=== PATIENT | male | born 1955 | race Caucasian/White ===

== ENCOUNTER 2018-11-14 13:20 | Emergency (ER) | payer OTHER ==
--- NOTE | 2018-11-14 14:07 | EDM.PDOC ---
ED HPI GENERAL MEDICAL PROBLEM - General Chief Complaint: Lower Extremity Injury/Pain Stated Complaint: ACCIDENT/ VIA [facility] Time Seen by Provider: 11/14/18 14:01 Source of Information: Reports: Patient, Family, RN Notes Reviewed History Limitations: Reports: No Limitations - History of Present Illness INITIAL COMMENTS - FREE TEXT/NARRATIVE: 63-year-old gentleman brought in by EMS services today with complaint of pain to his left lower extremity. He injured himself while cutting wood large branch swung down and hit him along side the left leg he does have a large hematoma in that leg rates his pain 5 out of 10 declines any pain medication at this time. No difficulty moving his lower extremity although painful to bear weight Left Lower Leg Pain Score (Numeric/FACES): 5 - Related Data Allergies Allergy/AdvReac Type Severity Reaction Status Date / Time atorvastatin Allergy Cannot Verified 11/14/18 13:32 Remember carbamazepine Allergy Cannot Verified 11/14/18 13:32 Remember cephalexin [From Keflex] Allergy Cannot Verified 11/14/18 13:32 Remember coconut Allergy Cannot Verified 11/14/18 13:32 Remember etodolac Allergy Cannot Verified 11/14/18 13:32 Remember influenza A (H1N1) virus Allergy Cannot Verified 11/14/18 13:32 vaccine [id number] Remember [From influenza A (H1N1)] morphine Allergy Cannot Verified 11/14/18 13:32 Remember naproxen Allergy Cannot Verified 11/14/18 13:32 Remember Penicillins Allergy Cannot Verified 11/14/18 13:32 Remember simvastatin Allergy Cannot Verified 11/14/18 13:32 Remember Home Meds: Home Meds Albuterol Sulfate [Albuterol Sulfate Hfa] 1 inh IH Q4H PRN 11/14/18 [History] Aspirin [Halfprin] 81 mg PO DAILY 11/14/18 [History] Budesonide/Formoterol [Symbicort 160-4.5 MCG] 1 puff INH BID 11/14/18 [History] Cholecalciferol (Vitamin D3) [Vitamin D3] 1,000 unit PO DAILY 11/14/18 [History] Fexofenadine HCl 180 mg PO DAILY 11/14/18 [History] Fluticasone Propionate [Flonase] 1 spray NS DAILY 11/14/18 [History] Furosemide 40 mg PO DAILY 11/14/18 [History] Gabapentin [Neurontin] 600 mg PO TID 11/14/18 [History] Levothyroxine 112 mcg PO ACBREAKFAST 11/14/18 [History] Metoprolol Succinate 12.5 mg PO DAILY 11/14/18 [History] Sennosides/Docusate Sodium [Docusate Sodium-Sennosides Tab] 1 each PO DAILY [History] Past Medical History HEENT History: Reports: Impaired Vision Cardiovascular History: Reports: CAD, Heart Failure, Hypertension, SD, Stents Respiratory History: Reports: COPD Musculoskeletal History: Reports: Fracture Psychiatric History: Reports: PTSD Endocrine/Metabolic History: Reports: Hypothyroidism - Past Surgical History Neurological Surgical History: Reports: Lumbar Spine, Sacral Spine Musculoskeletal Surgical History: Reports: Hip Replacement, Knee Replacement, ORIF Social & Family History - Tobacco Use Smoking Status *Q: Current Every Day Smoker Years of Tobacco use: 45 Packs/Tins Daily: 1 - Caffeine Use Caffeine Use: Reports: Coffee - Recreational Drug Use Recreational Drug Use: No Review of Systems - Review of Systems Review Of Systems: See Below Musculoskeletal: Reports: Leg Pain Skin: Reports: Bruising ED EXAM, GENERAL - Physical Exam Exam: See Below Free Text/Narrative:: Examination of the left leg he does have a large hematoma approximately 11 cm by a 10 cm on the lateral aspect of the left lower extremity it is tender to the touch pedal pulses +2 can move all digits no pain with dorsiflexion of the foot Exam Limited By: No Limitations General Appearance: Alert, WD/WN, No Apparent Distress Respiratory/Chest: No Respiratory Distress Course - Vital Signs Last Recorded V/S: Last Vital Signs Temp 96.1 F 11/14/18 13:29 Pulse 56 L 11/14/18 13:29 Resp 14 11/14/18 13:29 BP 131/73 11/14/18 13:29 Pulse Ox 86 L 11/14/18 13:29 Departure - Departure Time of Disposition: 16:46 Disposition: Home, Self-Care 01 Condition: Fair Clinical Impression: Hematoma of lower leg - Discharge Information Referrals: PCP,None [Primary Care Provider] - Forms: ED Department Discharge Additional Instructions: Use Tylenol or Motrin as needed for pain control, Please followup with your primary care provider in 3-5 days if not better, please call return to the emergency department with worsening of symptoms. - Assessment/Plan Plan: Assessment Acuity = acute Site and laterality = large hematoma 11 x 14 cm left leg Etiology = secondary to trauma Manifestations = pain Location of injury = Home Lab values = x-ray reveals no fracture Plan Called discussed the case with Dr. Delgado orthopedic surgery at 1510 kindly agreed to come and evaluate the patient in the emergency department for evacuation of hematoma please see his note for details. Patient is discharged home Tylenol Motrin as needed for pain control follow-up primary care 3-5 days if not better This note was dictated using [employer] voice recognition software please call with any questions on syntax or grammar.
--- NOTE | 2018-11-14 14:58 | CRLCR ---
INDICATION: Tree branch came back and hit patient`s leg. TECHNIQUE: Four views left tibia and fibula. FINDINGS: Prominent soft tissue in the focally in the left mid calf laterally. Specifically in this region there is a 8-9 cm in length soft tissue mass which may be a hematoma given the history. Prominent diffuse increased density in the subcutaneous tissues of the left calf could be related to cellulitis or more likely edema. Partial visualization of left total knee arthroplasty. Moderate degenerative arthritis left ankle and the mid and hindfoot. No acute fracture or dislocation in the left tibia or fibula. Calcified phleboliths in the left calf anteriorly. Remainder negative. Dictated by Jag Flor MD @ Nov 14 2018 2:53PM Signed by Dr. Jag Flor @ Nov 14 2018 2:55PM
== END 2018-11-14 17:31 | disposition home or self-care (01) ==
LOC: JP.ED 13:20
DX: S80.12XA Contusion of left lower leg, initial encounter (principal); I11.0 Hypertensive heart disease with heart failure; I50.9 Heart failure, unspecified; I25.2 Old myocardial infarction; I25.10 Atherosclerotic heart disease of native coronary artery without angina pectoris; J44.9 Chronic obstructive pulmonary disease, unspecified; E03.9 Hypothyroidism, unspecified; F17.210 Nicotine dependence, cigarettes, uncomplicated; Z88.8 Allergy status to other drugs, medicaments and biological substances; Z88.1 Allergy status to other antibiotic agents; Z91.018 Allergy to other foods; Z88.6 Allergy status to analgesic agent; Z88.7 Allergy status to serum and vaccine; Z88.5 Allergy status to narcotic agent; Z88.0 Allergy status to penicillin; Z79.82 Long term (current) use of aspirin; Z79.899 Other long term (current) drug therapy; W22.8XXA Striking against or struck by other objects, initial encounter
CPT/HCPCS: 73590-LT; 99283-25